=== PATIENT | female | born 2000 | race Caucasian/White ===

== ENCOUNTER 2023-04-04 15:38 | Outpatient (REF) | payer MEDICAID, SELFPAY ==
[2023-04-04 20:01] LABS: Anion Gap 5.8 mmol/L (3-11); BUN 10 mg/dL (7-18); CO2 28.2 mmol/L (21.0-32.0); CREATININE 0.8 mg/dL (0.55-1.02); Calcium 8.8 mg/dL (8.5-10.1); Chloride 104 mmol/L (98-107); Estimated GFR 105.45 (mL/min/1.73m2); Glucose 99 mg/dL (74-106); Potassium 3.9 mmol/L (3.5-5.1); Sodium 138 mmol/L (136-145); TSH 1.18 uIU/mL (0.36-3.74)
== END 2023-04-04 15:39 | disposition home or self-care (01) ==
LOC: NCHCN 15:38
PROVIDERS: PCP Physician Assistant; Visit Provider Internal Medicine
DX: E66.9 Obesity, unspecified (principal)
CPT/HCPCS: 80048; 84443

== ENCOUNTER 2024-09-01 16:31 | Outpatient (REF) | payer MEDICAID, SELFPAY ==
[2024-09-01 21:39] LABS: Hemoglobin A1C 5.1 % (<5.7)
[2024-09-01 21:43] LABS: Calculated LDL 161 mg/dL (<100); Cholesterol 225 mg/dL (<200); HDL Cholesterol 44 mg/dL (40-60); TSH 1.34 uIU/mL (0.36-3.74); Triglyceride 104 mg/dL (<150)
== END 2024-09-01 16:32 | disposition home or self-care (01) ==
LOC: NCHCN 16:31
PROVIDERS: PCP Physician Assistant; Visit Provider Internal Medicine
DX: E66.9 Obesity, unspecified (principal)
CPT/HCPCS: 80061; 83036; 84443